=== PATIENT | female | born 1980 | race Caucasian/White ===

== ENCOUNTER → 2019-12-03 | Outpatient (CLI) | payer OTHER ==
[~2019-12-03] MED LIST: CELEXA10 MG PO; DAYPRO600 M1 PO; HYDROCODONE BIT1 T11 PO; MEDROL DOSEPAK4 MG PO; METFORMIN500 MG PO; ROBAXIN750 MG PO; VICODIN 500 MG-1 TAB PO; [UNRECOGNIZED DRUG - REMARK]
== END | disposition home or self-care (01) ==
LOC: RAD 13:44
DX: M54.5 Low back pain (principal); M54.6 Pain in thoracic spine; R06.02 Shortness of breath

== ENCOUNTER → 2019-12-10 | Outpatient (CLI) | payer OTHER | END | disposition home or self-care (01) | LOC: CT 01:40 | DX: N28.1 Cyst of kidney, acquired (principal); N20.0 Calculus of kidney ==

== ENCOUNTER → 2020-01-04 | Outpatient (CLI) | payer OTHER | END | disposition home or self-care (01) | LOC: US 10:53 | DX: G24.01 Drug induced subacute dyskinesia (principal) ==

== ENCOUNTER 2022-08-28 02:27 | Emergency (ER) | payer OTHER ==
[2022-08-28] MEDS ORDERED: PREDNISONE20 M1 PO (03:05)
== END 2022-08-28 03:32 | disposition home or self-care (01) ==
LOC: ED 02:27
DX: G51.0 Bell's palsy (principal); Z79.899 Other long term (current) drug therapy